=== PATIENT | female | born 1965 | race Hispanic/Latino ===

== ENCOUNTER 2022-08-03 20:12 | Emergency (ER) | payer OTHER ==
[~2022-08-03] VITALS: Ht 152.4 cm; Wt 86.2 kg
[2022-08-03 20:22] VITALS: O2SAT 99
[2022-08-03] MEDS ORDERED: ACETAMINOPHEN 325 MG TAB ONE (20:39)
[2022-08-03] MEDS ORDERED: ACETAMINOPHEN 325 MG TAB PO ONE (20:45)
[2022-08-03 21:07] LABS: STREPTOCOCCUS GRP A ANTIGEN NEGATIVE (NEGATIVE)
[2022-08-03 21:17] LABS: INFLUENZAE A&B ANTIGEN (RAPID) NEGATIVE (NEGATIVE)
== END 2022-08-03 23:25 | disposition home or self-care (01) ==
LOC: ER 20:18
DX: R50.9 Fever, unspecified (principal); U07.1 COVID-19; R05.9 Cough, unspecified
CPT/HCPCS: 71046; 83518; 87070; 87400; 99282; U0002